=== PATIENT | male | born 2000 | race Caucasian/White ===

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

== ENCOUNTER 2023-10-03 23:55 | Emergency (ER) | payer OTHER ==
[~2023-10-03] VITALS: Ht 167.6 cm; Wt 100.0 kg
[2023-10-03 23:59] VITALS: BP 136/71; PULSE 128; RESP 15; TEMP 98.6; O2SAT 97
[2023-10-04] MEDS: TETANUS, DIPHTHERIA, PERTUSSIS VAC/PF 0.5ML (>10YR OLD) IM ONE (00:15)
[2023-10-04] MEDS ORDERED: NAPR220C61 MT (05:20)
[2023-10-04] MEDS: IBUPROFEN 600MG TABLET PO ONE (06:00)
== END 2023-10-04 06:21 | disposition home or self-care (01) ==
LOC: ER 23:55
DX: S01.81XA Laceration without foreign body of other part of head, initial encounter (principal); S09.90XA Unspecified injury of head, initial encounter; J45.909 Unspecified asthma, uncomplicated; F12.10 Cannabis abuse, uncomplicated; Z90.49 Acquired absence of other specified parts of digestive tract; V49.49XA Driver injured in collision with other motor vehicles in traffic accident, initial encounter; Y93.89 Activity, other specified; Y92.89 Other specified places as the place of occurrence of the external cause; Y99.8 Other external cause status
CPT/HCPCS: 12013; 73030; 73502; 73560; 90471; 90715; 99285